=== PATIENT | female | born 1985 | race Caucasian/White ===

== ENCOUNTER → 2022-01-03 | Day surgery (SDC) | payer OTHER ==
[~2022-01-03] VITALS: Ht 163 cm; Wt 86.0 kg
[~2022-01-03] MED LIST: COLACE100 MG PO; IBUPROFEN800 M1 PO; LOPRESSOR100 MG PO; ONDANSETRON ODT4 MG PO; PERCOCET 5-3251 EACH PO
[2022-01-03 07:29] LABS: HCG (URINE) SCREEN NEGATIVE (NEGATIVE)
[2022-01-03 07:45] LABS: HGB 14.8 g/dl (12.5-16.0); MCH 30.1 pg (25.0-31.0); MCHC 33.6 g/dL (32.0-36.0); MCV 89.4 fL (78.0-100.0); MPV 10.5 fL (6.0-9.5); RBC 4.92 M/uL (4.20-5.40); RDW 13.9 % (11.5-14.0)
[2022-01-03 08:03] LABS: BUN/CREAT RATIO (CALC) 14.1 RATIO; CREATININE 0.78 mg/dL (0.51-0.95); POTASSIUM 4.2 mmol/L (3.5-5.1)
== END | disposition home or self-care (01) ==
LOC: FAS 06:58
PROVIDERS: Obstetrics & Gynecology
DX: N87.9 Dysplasia of cervix uteri, unspecified (principal); N72 Inflammatory disease of cervix uteri; N81.4 Uterovaginal prolapse, unspecified; I10 Essential (primary) hypertension; F17.200 Nicotine dependence, unspecified, uncomplicated; Z98.51 Tubal ligation status
CPT/HCPCS: 36415; 80048; 84703; 86850; 86900; 86901; 93005; J0690; J1170; J1885; J2250; J2405; J2704; J2710; J3010; J7120

== ENCOUNTER 2022-03-15 20:46 | Emergency (ER) | payer OTHER | END 2022-03-15 21:15 | disposition left against medical advice (07) | LOC: FER 20:46 | DX: Z53.21 Procedure and treatment not carried out due to patient leaving prior to being seen by health care provider (principal) ==